=== PATIENT | female | born 1965 | race Caucasian/White ===

== ENCOUNTER 2017-09-28 09:52 | Outpatient (CLI) | payer OTHER ==
[~2017-09-28 09:52] MED LIST: HYDR-3965 PO; PER10325T PO
[2017-09-28 10:02] VITALS: BP 126/79
== END 2017-09-28 11:15 | disposition home or self-care (01) ==
LOC: ORTHO 09:52
PROVIDERS: ATTEND Nurse Practitioner Family
DX: S52.501A Unspecified fracture of the lower end of right radius, initial encounter for closed fracture (principal); E03.9 Hypothyroidism, unspecified; F17.210 Nicotine dependence, cigarettes, uncomplicated; Z88.5 Allergy status to narcotic agent; Z88.6 Allergy status to analgesic agent; Z88.1 Allergy status to other antibiotic agents; X58.XXXD Exposure to other specified factors, subsequent encounter
CPT/HCPCS: 29075; A4590

== ENCOUNTER 2017-10-19 15:32 | Outpatient (CLI) | payer OTHER ==
[~2017-10-19 15:32] MED LIST changes: -HYDR-3965 PO
[2017-10-19 15:42] VITALS: BP 120/77
== END 2017-10-19 16:13 | disposition home or self-care (01) ==
LOC: ORTHO 15:32
PROVIDERS: ATTEND Nurse Practitioner Family
DX: S52.501G Unspecified fracture of the lower end of right radius, subsequent encounter for closed fracture with delayed healing (principal); F17.210 Nicotine dependence, cigarettes, uncomplicated; Z88.5 Allergy status to narcotic agent; Z88.6 Allergy status to analgesic agent; Z88.1 Allergy status to other antibiotic agents; W19.XXXD Unspecified fall, subsequent encounter
CPT/HCPCS: 29075; 73110; A4590

== ENCOUNTER 2017-11-09 14:10 | Outpatient (CLI) | payer OTHER ==
[2017-11-09 14:22] VITALS: BP 122/78
== END 2017-11-09 14:40 | disposition home or self-care (01) ==
LOC: ORTHO 14:10
PROVIDERS: ATTEND Nurse Practitioner Family
DX: S52.501D Unspecified fracture of the lower end of right radius, subsequent encounter for closed fracture with routine healing (principal); S52.611D Displaced fracture of right ulna styloid process, subsequent encounter for closed fracture with routine healing; Z88.6 Allergy status to analgesic agent; Z88.8 Allergy status to other drugs, medicaments and biological substances; X58.XXXD Exposure to other specified factors, subsequent encounter
CPT/HCPCS: 29260; 73110

== ENCOUNTER 2017-12-08 14:08 | Outpatient (CLI) | payer OTHER | END 2017-12-08 14:50 | disposition home or self-care (01) | LOC: ORTHO 14:08 | PROVIDERS: ATTEND Nurse Practitioner Family | DX: S52.501D Unspecified fracture of the lower end of right radius, subsequent encounter for closed fracture with routine healing (principal); S69.92XD Unspecified injury of left wrist, hand and finger(s), subsequent encounter; F17.210 Nicotine dependence, cigarettes, uncomplicated; Z88.5 Allergy status to narcotic agent; Z88.6 Allergy status to analgesic agent; Z56.0 Unemployment, unspecified; Z88.8 Allergy status to other drugs, medicaments and biological substances; W19.XXXD Unspecified fall, subsequent encounter | CPT/HCPCS: 73110; 99212 ==